=== PATIENT | female | born 1990 | race Caucasian/White ===

== ENCOUNTER 2022-10-12 09:43 | Emergency (ER) | payer BC ==
--- OUTSIDE RECORDS SUMMARY | 2022-10-12 10:18 | XMS REPORT | Continuity of Care Document ---
:1990 Author Organization [facility] Address [address] [place] [id number] Care Team Providers Name Role Phone [email or web address] Attending Clinician Unavailable [email or web address]_[email or web address] Admitting Clinician Unavailable Payers Payer Name Policy Type Policy Number Effective Date Expiration Date [place] [id number] 2016 00:00:00 Problems This patient has no known problems. Allergies, Adverse Reactions, Alerts This patient has no known allergies or adverse reactions. Medications This patient has no known medications. Procedures This patient has no known procedures. Encounters Start End Encounter Admission Attending Care Care Encounter Source Date/Time Date/Time Type Type Clinicians Facility Department ID 2020-07-04 2020-07-04 Outpatient [id number] PRIV PRIV [id number] [facility] 11:23:00 11:23:00 Cody [id number] [facility] Results This patient has no known results.
[2022-10-12] MEDS ORDERED: ONDANSETRON 4 MG/2 ML VIAL ONE (10:23)
[2022-10-12] MEDS ORDERED: NA CHLORIDE 0.9% 1,000 ML ONE (10:23)
--- NOTE | 2022-10-12 10:26 | RAD REPORT ---
EXAM DESCRIPTION: US - Abdomen Exam Limited - 10/12/2022 10:10 am CLINICAL HISTORY: ABD PAIN COMPARISON: <Comparisons> FINDINGS: The gallbladder demonstrates extensive sludge and stones. No pericholecystic fluid or gall bladder wall thickening. The common bile duct is normal measuring 6 mm.. The liver demonstrates no findings of intrahepatic biliary dilatation. IMPRESSION: Extensive gallbladder sludge and stones.
[2022-10-12 10:47] LABS: Absolute Lymphocytes (CBC) 1.1 K/uL (0.7-4.9); Hematocrit 41.2 % (36.0-45.0); Lymphocytes % 23.4 % (15.3-44.8); MCV 90.7 fL (80-100); MPV 7.9 fL (7.6-11.3); RBC Red Blood Cell Count 4.54 M/uL (3.86-4.86)
[2022-10-12 11:04] LABS: Albumin 3.9 g/dL (3.4-5.0); Bilirubin Total 0.4 mg/dL (0.2-1.0); Potassium 3.5 mEq/L (3.5-5.1)
--- NOTE | 2022-10-12 11:14 | EDPHYS ---
Physician Documentation [facility] Name: Clementina Mario Age: 32 yrs Sex: Female : 1990 Arrival Date: 10/12/2022 Time: 09:43 Bed 8 Private MD: ED Physician Janell Henao HPI: 10/12 15:57 This 32 yrs old Female presents to ER via Ambulatory with complaints of Abdominal Pain. kb 15:57 The patient presents with abdominal pain in the right upper quadrant. Onset: The kb symptoms/episode began/occurred 2 month(s) ago, and became worse. The symptoms do not radiate. Associated signs and symptoms: Pertinent positives: nausea, Pertinent negatives: diarrhea, fever, vomiting. The symptoms are described as intermittent. Modifying factors: The symptoms are alleviated by nothing, the symptoms are aggravated by food. Severity of pain: At its worst the pain was moderate in the emergency department the pain is unchanged. The patient has not experienced similar symptoms in the past. The patient has not recently seen a physician. Pt reports RUQ for months that has become constant over the last few days. Pain worsens with eating. RESEARCH GEOLOGIST: 12:07 LMP N/A - iw Historical: - Allergies: 09:52 tramadol; aa5 09:52 NSAIDS ("can't take because of gastric sleeve"); aa5 - PMHx: 09:52 None; aa5 - PSHx: 09:52 gastric sleeve; aa5 - Immunization history:: Adult Immunizations unknown. - Social history:: Smoking status: Patient denies any tobacco usage or history of. ROS: 15:58 Constitutional: Negative for fever, chills, and weight loss. kb 15:58 Abdomen/GI: Positive for abdominal pain, nausea, Negative for vomiting, diarrhea. 15:58 All other systems are negative. Exam: 15:58 Constitutional: This is a well developed, well nourished patient who is awake, alert, kb and in no acute distress. Head/Face: Normocephalic, atraumatic. ENT: Moist Mucous membranes Cardiovascular: Regular rate and rhythm with a normal S1 and S2. No gallops, murmurs, or rubs. No pulse deficits. Respiratory: Respirations even and unlabored. No increased work of breathing. Talking in full sentences Skin: Warm, dry with normal turgor. Normal color. MS/ Extremity: Pulses equal, no cyanosis. Neurovascular intact. Full, normal range of motion. Neuro: Awake and alert, GCS 15, oriented to person, place, time, and situation. Moves all extremities. Normal gait. 15:58 Abdomen/GI: Inspection: abdomen appears normal, Bowel sounds: normal, Palpation: soft, in all quadrants, moderate abdominal tenderness, in the right upper quadrant. Vital Signs: 09:52 BP 119 / 83; Pulse 92; Resp 18 S; Temp 98.1(O); Pulse Ox 97% on R/A; Weight 54.43 kg aa5 (R); Height 5 ft. 3 in. (R); 10:30 BP 111 / 67; Pulse 84; Resp 18 S; Pulse Ox 98% on R/A; aa5 12:07 BP 116 / 76; Pulse 79; Resp 16; Pulse Ox 98% on R/A; iw 09:52 Body Mass Index 21.26 (54.43 kg, 160.02 cm) aa5 MDM: 09:52 Patient medically screened. kb 15:59 Differential diagnosis: cholecystitis, Cholelithiasis, gastroesophageal reflux disease, kb pancreatitis. Data reviewed: vital signs, nurses notes. Counseling: I had a detailed discussion with the patient and/or guardian regarding: the historical points, exam findings, and any diagnostic results supporting the discharge/admit diagnosis, lab results, radiology results, the need for outpatient follow up, a general surgeon, to return to the emergency department if symptoms worsen or persist or if there are any questions or concerns that arise at home. 10/12 10:00 Order name: CBC with Diff; Complete Time: 10:57 kb 10/12 10:00 Order name: CMP; Complete Time: 11:08 kb 10/12 10:00 Order name: Lipase; Complete Time: 11:08 kb 10/12 10:00 Order name: Abdomen Limited US; Complete Time: 10:26 kb 10/12 10:00 Order name: IV Saline Lock; Complete Time: 10:03 kb 10/12 10:00 Order name: Labs collected and sent; Complete Time: 10:03 kb Administered Medications: 10:03 CANCELLED (Physician Discretion): TORadol - Ketorolac IVP 15 mg IVP once aa5 10:36 Drug: NS 0.9% IV 1000 ml Route: IV; Rate: 1 bolus; Site: right forearm; aa5 11:44 Follow up: IV Status: Completed infusion; IV Intake: 1000ml aa5 10:36 Drug: Ondansetron IVP 4 mg Route: IVP; Site: right forearm; aa5 10:45 Follow up: Response: No adverse reaction aa5 11:44 Drug: Dicyclomine PO 20 mg Route: PO; aa5 11:50 Follow up: Response: No adverse reaction aa5 11:44 Drug: Ketorolac IVP 15 mg Route: IVP; Site: right forearm; aa5 11:50 Follow up: Response: No adverse reaction aa5 Disposition: 19:13 I reviewed the patient's care provided by Advanced Practice Provider \\T\\ agree w/ the cp3 diagnosis \\T\\ care plan. I personally saw the pt \\T\\ performed a substantive portion of the visit, incldng all aspects of the (History/Exam/Medical Decision Making). Disposition Summary: 10/12/22 11:13 Discharge Ordered Location: Home kb Condition: Stable kb Diagnosis - Other cholelithiasis without obstruction kb Followup: kb - With: Emergency Department - When: As needed - Reason: Worsening of condition Followup: kb - With: Private Physician - When: 2 - 3 days - Reason: Recheck today's complaints, Continuance of care, Re-evaluation by your physician Discharge Instructions: - Discharge Summary Sheet kb - Cholelithiasis, [id number] kb Forms: - Medication Reconciliation Form kb - Thank You Letter kb - Antibiotic Education kb - Prescription Opioid Use kb - Patient Portal Instructions kb Prescriptions: - acetaminophen-codeine 300-15 mg Oral tablet - take 1 tablet by ORAL route every 6 hours As needed as needed for pain; 12 kb tablet; Refills: 0, Product Selection Permitted - Zofran 4 mg Oral Tablet - take 1 tablet by ORAL route every 6 hours As needed; 20 tablet; Refills: 0, kb Product Selection Permitted - dicyclomine 20 mg Oral Tablet - take 1 tablet by ORAL route 4 times per day As needed; 20 tablet; Refills: 0, kb Product Selection Permitted Signatures: Dispatcher [employer] Veronika Davis FNP-C FNP-Janell Smith MD MD cp3 Sushma Wahl, RN RN aa5 Corrections: (The following items were deleted from the chart) 10:03 10:00 TORadol - Ketorolac IVP 15 mg IVP once ordered. kb aa5
--- NOTE | 2022-10-12 11:14 | ER ---
Nurse's Notes [facility] Name: Clementina Mario Age: 32 yrs Sex: Female : 1990 Arrival Date: 10/12/2022 Time: 09:43 Bed 8 Private MD: Diagnosis: Other cholelithiasis without obstruction Presentation: 10/12 09:52 Chief complaint: Patient states: RUQ pain that began Friday evening, reports previous aa5 episodes of similar pain. Pt reports pain is aggravated when eating. 09:52 Coronavirus screen: At this time, the client does not indicate any symptoms associated aa5 with coronavirus-19. Ebola Screen: Patient denies travel to an Ebola-affected area in the 21 days before illness onset. Initial Sepsis Screen: Does the patient meet any 2 criteria? HR > 90 bpm. Does the patient have a suspected source of infection? No. Patient's initial sepsis screen is negative. Risk Assessment: Do you want to hurt yourself or someone else? Patient reports no desire to harm self or others. Onset of symptoms was October 2022. 09:52 Acuity: LUCAS 3 aa5 09:52 Method Of Arrival: Ambulatory aa5 ENVIRONMENTAL SERVICES AIDE: 12:07 LMP N/A - iw Historical: - Allergies: 09:52 tramadol; aa5 09:52 NSAIDS ("can't take because of gastric sleeve"); aa5 - PMHx: 09:52 None; aa5 - PSHx: 09:52 gastric sleeve; aa5 - Immunization history:: Adult Immunizations unknown. - Social history:: Smoking status: Patient denies any tobacco usage or history of. Screenin:[address] [facility] ED Fall Risk Assessment (Adult) History of falling in the last 3 months, aa5 including since admission No falls in past 3 months (0 pts) Confusion or Disorientation No (0 pts) Intoxicated or Sedated No (0 pts) Impaired Gait No (0 pts) Mobility Assist Device Used No (0 pt) Altered Elimination No (0 pt) Score/Fall Risk Level 0 - 2 = Low Risk Oriented to surroundings, Maintained a safe environment, Educated pt \\T\\ family on fall prevention, incl call for assistance when getting out of bed. Abuse screen: Denies threats or abuse. Nutritional screening: No deficits noted. Tuberculosis screening: No symptoms or risk factors identified. Assessment: 09:52 General: Appears comfortable, Behavior is calm, cooperative. Pain: Complains of pain in aa5 right upper quadrant Quality of pain is described as crampy, Pain began 5 days ago Is intermittent, Aggravated by eating. Neuro: Level of Consciousness is awake, alert, obeys commands, Oriented to person, place, time, situation. Cardiovascular: Heart tones S1 S2 present Rhythm is regular. Respiratory: Airway is patent Respiratory effort is even, unlabored, Respiratory pattern is regular, symmetrical. GI: Abdomen is flat, non-distended, Bowel sounds present X 4 quads. Abd is soft X 4 quads Abdomen is tender to palpation in right upper quadrant Reports nausea, Patient currently denies vomiting. : No signs and/or symptoms were reported regarding the genitourinary system. EENT: No signs and/or symptoms were reported regarding the EENT system. Derm: Skin is pink, warm \\T\\ dry. Musculoskeletal: Range of motion: intact in all extremities. 10:05 Reassessment: US at bedside . aa5 11:44 Reassessment: Patient is alert, oriented x 3, equal unlabored respirations, skin aa5 warm/dry/pink. 11:50 Reassessment: Patient is alert, oriented x 3, equal unlabored respirations, skin aa5 warm/dry/pink. Vital Signs: 09:52 BP 119 / 83; Pulse 92; Resp 18 S; Temp 98.1(O); Pulse Ox 97% on R/A; Weight 54.43 kg aa5 (R); Height 5 ft. 3 in. (R); 10:30 BP 111 / 67; Pulse 84; Resp 18 S; Pulse Ox 98% on R/A; aa5 12:07 BP 116 / 76; Pulse 79; Resp 16; Pulse Ox 98% on R/A; iw 09:52 Body Mass Index 21.26 (54.43 kg, 160.02 cm) aa5 ED Course: 09:46 Patient arrived in ED. ts1 09:52 Veronika Baltazar [facility]-C [facility]. kb 09:52 Janell Henao MD is Attending Physician. kb 09:52 Arm band placed on Patient placed in an exam room, on a stretcher. aa5 09:52 Patient has correct armband on for positive identification. Bed in low position. Call aa light in reach. Side rails up X 1. Adult w/ patient. 10:02 Sushma Wahl, RN is Primary Nurse. aa5 10:04 Triage completed. aa5 10:12 Abdomen Limited US In Process Unspecified. EDMS 10:35 Initial lab(s) drawn, by me, sent to lab. Inserted saline lock: 20 gauge in right aa5 forearm, using aseptic technique. Blood collected. 11:57 IV discontinued. mm9 12:06 No provider procedures requiring assistance completed. iw 12:07 Provided Education on: prescriptions, f/u with general surgery . iw 12:07 IV discontinued, intact, bleeding controlled, No redness/swelling at site. Pressure iw dressing applied. Administered Medications: 10:03 CANCELLED (Physician Discretion): TORadol - Ketorolac IVP 15 mg IVP once aa5 10:36 Drug: NS 0.9% IV 1000 ml Route: IV; Rate: 1 bolus; Site: right forearm; aa5 11:44 Follow up: IV Status: Completed infusion; IV Intake: 1000ml aa5 10:36 Drug: Ondansetron IVP 4 mg Route: IVP; Site: right forearm; aa5 10:45 Follow up: Response: No adverse reaction aa5 11:44 Drug: Dicyclomine PO 20 mg Route: PO; aa5 11:50 Follow up: Response: No adverse reaction aa5 11:44 Drug: Ketorolac IVP 15 mg Route: IVP; Site: right forearm; aa5 11:50 Follow up: Response: No adverse reaction aa5 Medication: 12:07 VIS not applicable for this client. iw Intake: 11:44 IV: 1000ml; Total: 1000ml. aa5 Outcome: 11:13 Discharge ordered by . kb 12:06 Discharged to home ambulatory, with family. iw 12:06 Condition: good 12:06 Discharge instructions given to patient, family, Instructed on discharge instructions, follow up and referral plans. medication usage, Demonstrated understanding of instructions, follow-up care, medications, Prescriptions given X 3. 12:08 Patient left the ED. iw Signatures: Dispatcher [employer] EDMS Veronika Baltazar, RECYCLING SORTER-C RECYCLING SORTER-CkDeena Meeks RN RN iw Sushma Wahl, RN RN aa5 Iza Mendoza mm9 Enamorado, Natalie, PAS PAS ts1
[2022-10-12] MEDS ORDERED: KETOROLAC 30 MG/ML INJ ONE (11:50)
[2022-10-12] MEDS ORDERED: DICYCLOMINE HCL 10 MG CAP ONE (11:50)
[2022-10-12 12:31] VITALS: TEMP 98.1
[2022-10-12 12:33] VITALS: O2SAT 98
[2022-10-12 12:34] VITALS: BP 116/76
== END 2022-10-12 12:08 | disposition home or self-care (01) ==
LOC: ER 09:43
DX: K80.80 Other cholelithiasis without obstruction (principal); Z88.5 Allergy status to narcotic agent; Z88.6 Allergy status to analgesic agent
CPT/HCPCS: 96361; 85025; 36415; 83690; 80053; 76705; 96375; 96374; 99284; J2405; J7030

== ENCOUNTER 2022-10-18 12:26 | Day surgery (SDC) | payer BC ==
[2022-10-18] MEDS ORDERED: Ringers Lactate 1,000 ML IV ONE (12:50)
[2022-10-18] MEDS ORDERED: CEFOXITIN SODIUM 1 GM/VIAL ONE (12:50)
[2022-10-18 13:16] LABS: Absolute Lymphocytes (CBC) 1.1 K/uL (0.7-4.9); Hematocrit 42.4 % (36.0-45.0); MCV 89.2 fL (80-100); MPV 7.7 fL (7.6-11.3); Platelets 268 thou/uL (152-406); RBC Red Blood Cell Count 4.75 M/uL (3.86-4.86)
[2022-10-18 13:33] LABS: Albumin 4.1 g/dL (3.4-5.0); Bilirubin Direct 0.1 mg/dL (0-0.2); Bilirubin Indirect, Calculated 0.4 mg/dL (0.2-0.8); Bilirubin Total 0.5 mg/dL (0.2-1.0); Potassium 3.9 mEq/L (3.5-5.1); Protein, Total 8.2 g/dL (6.4-8.2)
[2022-10-18] MEDS ORDERED: ROCURONIUM 50 MG/5 ML VIAL IV ONE (15:05)
[2022-10-18] MEDS ORDERED: ONDANSETRON 4 MG/2 ML VIAL ONE (15:05)
[2022-10-18] MEDS ORDERED: FENTANYL CITR 100 MCG/2 ML ONE ×2 (15:05→17:25)
[2022-10-18] MEDS ORDERED: propofoL 200 MG/20 ML VIAL IV ONE (15:05)
[2022-10-18] MEDS ORDERED: MIDAZOLAM HCL 2 MG/2 ML INJ ONE (15:05)
[2022-10-18] MEDS ORDERED: LIDOCAINE 2% MPF 5 ML VIAL ONE (15:05)
[2022-10-18 16:43] VITALS: O2SAT 100
[2022-10-18] MEDS: HYDROMORPHONE HCL 1 MG/ML INJ ONE ×5 (16:48→17:03)
[2022-10-18 18:00] VITALS: BP 120/70; TEMP 98
--- NOTE | 2022-10-18 18:06 | P.BOP ---
Preoperative diagnosis: symptomatic cholelithiasis Postoperative diagnosis: same Primary procedure: Laparoscopic cholecystectomy Outpatient Scheduler: Soraya Fabian (Susana) Estimated blood loss: <10cc Specimen: gb Findings: as above Anesthesia: General Complications: None Transferred to: Recovery Room Condition: Good
== END 2022-10-18 18:15 | disposition home or self-care (01) ==
LOC: OR 12:26
PROVIDERS: ATTEND Surgery
PROC: 0FT44ZZ Resection of Gallbladder, Percutaneous Endoscopic Approach (ICD-10-PCS; principal; 2022-10-18 15:00)
DX: K80.20 Calculus of gallbladder without cholecystitis without obstruction (principal)
CPT/HCPCS: 85025; 80048; 36415; 81025; 80076; 83690; 47562; J2704; J2001; J2250; J3010 ×2; J1170 ×2; J0694; J2405; J7120; 88304